=== PATIENT | male | born 1980 | race African-American/Black ===

== ENCOUNTER 2020-06-15 20:10 | Emergency (ER) | payer MEDICAID ==
[~2020-06-15] VITALS: Ht 180.3 cm; Wt 123.0 kg
[2020-06-15] MEDS ORDERED: HYDROCODONE/ACETAMINOPHEN 5/325MG TABLET PO ONE (21:15)
[2020-06-15] MEDS ORDERED: IBUP-2029 MT (22:00)
[2020-06-15 22:23] VITALS: BP 169/98
== END 2020-06-15 22:25 | disposition home or self-care (01) ==
LOC: ER 20:10
DX: S86.012A Strain of left Achilles tendon, initial encounter (principal); I10 Essential (primary) hypertension; W18.30XA Fall on same level, unspecified, initial encounter; Y93.9 Activity, unspecified; Y92.89 Other specified places as the place of occurrence of the external cause; Y99.8 Other external cause status
CPT/HCPCS: 29515; 99283; Z7610

== ENCOUNTER 2024-01-23 10:14 | Emergency (ER) | payer MEDICAID, MEDICARE ==
[~2024-01-23] VITALS: Ht 182.9 cm; Wt 129.3 kg
[~2024-01-23 10:14] MED LIST: IBUP-2029 MT
[2024-01-23 10:16] VITALS: O2SAT 98
[2024-01-23] MEDS ORDERED: CEFP200T13 MT (12:58)
[2024-01-23] MEDS: DIPHENHYDRAMINE 25MG CAPSULE PO ONE (13:06)
[2024-01-23 13:11] VITALS: BP 155/94; PULSE 99; RESP 16; TEMP 37.05852; O2SAT 98
== END 2024-01-23 13:46 | disposition home or self-care (01) ==
LOC: ER 10:14
DX: L29.9 Pruritus, unspecified (principal); T36.8X5A Adverse effect of other systemic antibiotics, initial encounter; I10 Essential (primary) hypertension; Z88.1 Allergy status to other antibiotic agents; Z98.890 Other specified postprocedural states; X58.XXXA Exposure to other specified factors, initial encounter
CPT/HCPCS: 99283; Q0163

== ENCOUNTER 2024-02-27 06:09 | Emergency (ER) | payer OTHER, MEDICAID ==
[~2024-02-27] VITALS: Ht 185.4 cm; Wt 119.0 kg
[~2024-02-27 06:09] MED LIST changes: +CEFP200T13 MT
[2024-02-27 06:11] VITALS: O2SAT 95
[2024-02-27 06:43] LABS: BASOPHILS % 0.3 % (0.0-2.0); EOSINOPHILS % 6.2 % (0.0-5.0); HEMATOCRIT. 30.8 % (42.0-52.0); HEMOGLOBIN. 10.3 g/dL (14.0-18.0); LYMPHOCYTES % 21.8 % (20.0-50.0); MEAN CORPUSCULAR HEMOGLOBIN 29.2 pg (28.0-32.0); MEAN CORPUSCULAR HGB CONC 33.6 g/dL (31.0-37.0); MEAN CORPUSCULAR VOLUME 86.9 fL (80.0-94.0); MEAN PLATELET VOLUME 8.6 fl (7.4-10.4); MONOCYTES % 8.9 % (2.0-8.0); NEUTROPHILS % 62.8 % (40.0-76.0); PLATELET 154 x1000/uL (130-400); RED BLOOD CELL COUNT 3.54 mill/uL (4.7-6.1); RED CELL DISTRIBUTION WIDTH 20.7 % (11.6-14.6); WHITE BLOOD COUNT 6.5 x1000/uL (4.5-11.0)
[2024-02-27 06:54] LABS: PROTHROMBIN TIME 10.9 sec (9.6-11.0)
[2024-02-27 06:57] LABS: CARBON DIOXIDE 26 mEq/L (21-32); CHLORIDE 97 mEq/L (98-107); POTASSIUM 3.9 mEq/L (3.5-5.1); SODIUM 135 mEq/L (136-145)
[2024-02-27 06:58] LABS: CALCIUM 9.1 mg/dL (8.7-10.4)
[2024-02-27 07:03] LABS: GLUCOSE 105 mg/dL (70-105); UREA NITROGEN BLOOD 53 mg/dL (9-23)
[2024-02-27 07:04] LABS: ALANINE AMINOTRANSFERASE < 7 IU/L (10-49); ASPARTATE AMINOTRANSFERASE 17 IU/L (<34)
[2024-02-27 07:05] LABS: BILIRUBIN TOTAL 0.3 mg/dL (0.1-1.0); PROTEIN TOTAL 7.5 g/dL (6.0-8.3)
[2024-02-27] MEDS: SODIUM CHLORIDE 0.9% 500 ML IV ONE (07:09)
[2024-02-27] MEDS: ACETAMINOPHEN 1000MG/100ML 100 ML IV ONE (07:09)
[2024-02-27] MEDS: VANCOMYCIN 1G PREMIX 200 ML IV STA (07:20)
[2024-02-27 08:07] LABS: BILIRUBIN DIRECT < 0.1 mg/dL (<=3.0)
[2024-02-27 08:09] LABS: CREATININE 10.2 mg/dL (0.6-1.3)
[2024-02-27 08:10] LABS: TROPONIN I HIGH SENSITIVITY 826 ng/L (3.0-53)
[2024-02-27 09:07] LABS: TROPONIN I HIGH SENSITIVITY 780 ng/L (3.0-53)
[2024-02-27] MEDS: IOHEXOL-350 100 ML BOTTLE ONE (11:29)
[2024-02-27] MEDS ORDERED: LABETALOL 5MG/ML 4ML INJ IV ONE (12:45)
[2024-02-27] MEDS: LABETALOL 5MG/ML 4ML INJ IV ONE (13:07)
[2024-02-27 16:10] VITALS: PULSE 158; RESP 23; TEMP 36.78072; O2SAT 97
[2024-02-27 16:20] VITALS: BP 155/100
[2024-02-27] MEDS: DILTIAZEM HCL 5MG/ML 5ML VIAL IV ONE (16:20)
== END 2024-02-27 16:40 | disposition short-term general hospital (02) ==
LOC: ER 06:09 → CANBEDREQ 12:24 → ER 16:40
DX: I21.3 ST elevation (STEMI) myocardial infarction of unspecified site (principal); I13.0 Hypertensive heart and chronic kidney disease with heart failure and stage 1 through stage 4 chronic kidney disease, or unspecified chronic kidney disease; N18.6 End stage renal disease; Z98.890 Other specified postprocedural states; Z88.1 Allergy status to other antibiotic agents; Z99.2 Dependence on renal dialysis
CPT/HCPCS: 99285; 96365; 71275; 96375; 71045; 80076; 80048; 83605; 85025; 85610; 86850; 86900; 86901; 87040; 84484; 36415; 96368; Q9967; J3490 ×2; J3370; J7040; J0131